=== PATIENT | male | born 1970 | race Caucasian/White ===

== ENCOUNTER 2023-01-21 05:53 | Day surgery (SDC) | payer OTHER ==
[2023-01-21] MEDS ORDERED: Lactated Ringers 1,000 ML IV SCH (06:30)
[2023-01-21] MEDS ORDERED: Versed 2 MG/2 ML Injection ONE (07:25)
[2023-01-21] MEDS ORDERED: DIPRIVAN 200 MG/20 ML IV ONE (07:25)
[2023-01-21 08:27] VITALS: O2SAT 98
[2023-01-21 08:55] VITALS: BP 154/84; PULSE 58
--- NOTE | 2023-01-21 09:04 | OP ---
SURGERY DATE/TIME: 01/21/2023 0726 PREOPERATIVE DIAGNOSIS: Screening examination. POSTOPERATIVE DIAGNOSIS: Small polyps in the transverse and sigmoid colon. PROCEDURE: Colonoscopy with cold forceps biopsy. SURGEON: Dr. Barillas. ANESTHESIA: MAC. Medications given by anesthesia department. HISTORY: The patient is a 52-year-old white male presents now for colonoscopic evaluation. He reports no problems. It is his first screening exam. The patient was described the risks of the procedure including the risk of perforation, phlebitis, untoward reaction to medication, bleeding and missed lesions. The patient verbalized his understanding and desired to have the procedure performed. DESCRIPTION OF PROCEDURE: The patient was given the medications by the anesthesia department. He had continuous pulse oximetry, ECG monitoring and intermittent blood pressure monitoring during the examination. He was placed in the left lateral decubitus position. Digital rectal examination was performed and revealed normal anal sphincter tone, no masses and a normal prostate. The flexible Olympus pediatric colonoscope was used to intubate the rectum. A view of the colon was developed sequentially to the cecum. Upon insertion and withdrawal, including a retroflex view in the rectum, was noted a few small polyps in the transverse and sigmoid colon. These were biopsied using cold biopsy technique and basically destroyed the lesions. The scope was removed from the patient who tolerated the procedure well and was sent back to OP recovery in good condition. The prep was noted to be fair to good.
== END 2023-01-21 08:55 | disposition home or self-care (01) ==
LOC: SDC 05:53
PROVIDERS: ATTEND Family Medicine
DX: Z12.11 Encounter for screening for malignant neoplasm of colon (principal); D12.5 Benign neoplasm of sigmoid colon; D12.3 Benign neoplasm of transverse colon
CPT/HCPCS: J2250; J2704